=== PATIENT | female | born 1990 | race Caucasian/White ===

== ENCOUNTER → 2017-11-20 | Outpatient (CLI) | payer SELFPAY ==
[2017-11-20 17:34] LABS: HEMOGLOBIN 15.9 g/dl (12.5-16.0); MEAN CELL VOLUME 94 fl (80.0-100.0); MEAN CORPUSCULAR HEMOGLOBIN 33 pg (27.0-31.0); MEAN CORPUSCULAR HGB CONC 35 g/dl (33.0-37.0); MEAN PLATELET VOLUME 10.9 fl (7.4-10.4); PLATELET COUNT 337 K/mm3 (130-400); REDCELL DISTRIBUTION WIDTH-CV 12.3 % (11.5-14.5)
[2017-11-20 17:52] LABS: ALBUMIN 4.2 gm/dL (3.5-5.0); BILIRUBIN,TOTAL 0.5 mg/dL (0.0-1.0); CALCIUM 10.1 mg/dL (8.4-10.2); CREATININE, serum 0.74 mg/dL (0.52-1.25); POTASSIUM 4.5 mmol/L (3.4-5.0); TOTAL PROTEIN 8.2 gm/dL (6.4-8.2)
[2017-11-20 18:22] LABS: THYROID STIMULATING HORMONE 1.63 uIU/mL (0.465-4.680)
[2017-11-21 01:14] LABS: T3 TOTAL 136 ng/dL (87-178)
== END ==
LOC: ZCOL.LAB 17:25
DX: R53.83 Other fatigue (principal); E03.9 Hypothyroidism, unspecified

== ENCOUNTER → 2017-11-21 | Outpatient (CLI) | payer SELFPAY | LOC: ZCOL.LAB 13:34 | DX: R53.83 Other fatigue (principal); E03.9 Hypothyroidism, unspecified ==